=== PATIENT | female | born 1985 | race Caucasian/White ===

== ENCOUNTER → 2018-12-08 | Outpatient (REF) | payer OTHER ==
[2018-12-08 11:38] LABS: URINE PREG TEST NEGATIVE (NEGATIVE)
[2018-12-08 11:45] LABS: APPEARANCE, URINE CLOUDY (CLEAR); BACTERIA, URINE AUTO 1+ (NEGATIVE); BILIRUBIN, URINE AUTO NEGATIVE (NEGATIVE); BLOOD, URINE BLOOD 3+ (NEGATIVE); COLOR, URINE AMBER (YELLOW); GLUCOSE, URINE (UA) AUTO NEGATIVE (NEGATIVE); KETONE, URINE AUTO NEGATIVE (NEGATIVE); LEUKOCYTE ESTERASE, URINE AUTO 3+ (NEGATIVE); MUCUS, URINE SMALL (NEGATIVE); NITRITE, URINE AUTO NEGATIVE (NEGATIVE); PROTEIN, URINE AUTO 1+ mg/dL (NEGATIVE); RBC, URINE AUTO 13 /HPF (0-3); SPECIFIC GRAVITY URINE AUTO 1.024 (1.002-1.035); SQUAMOUS EPITHELIAL CELL UR AU 18 /HPF (0-6); UROBILINOGEN, URINE AUTO 0.2 mg/dL (0.0-2.0); WBC, URINE AUTO 77 /HPF (0-3)
== END ==
LOC: M LAB REF 11:04
PROVIDERS: ATTEND Physician Assistant
DX: N39.0 Urinary tract infection, site not specified (principal)

== ENCOUNTER 2019-12-23 14:18 | Emergency (ER) | payer OTHER ==
[~2019-12-23] VITALS: Ht 167.6 cm; Wt 103.5 kg
--- NOTE | 2019-12-23 14:52 | REP ---
Portable chest, 02:37 p.m., single AP view with the patient sitting: There are no comparisons. The lung brooks are clear. The cardiac size is normal. The dustin, mediastinum, and skeletal structures are unremarkable. Impression: Negative portable chest. Electronically Signed by Raza Jain MD 12/23/2019 02:44 P
[2019-12-23 15:12] LABS: BASO % 0.5 % (0.0-1.0); EOS % 0.5 % (0.0-3.0); HEMATOCRIT 43.1 % (36.0-47.0); HEMOGLOBIN 14.1 g/dl (12.0-15.5); LYMPH # 1.2 10^3/uL (1.5-5.0); LYMPH % 19.9 % (24.0-44.0); MEAN CORPUSCULAR HEMOGLOBIN 28.9 pg (27.0-33.0); MEAN CORPUSCULAR HGB CONC 32.7 g/dl (32.0-36.5); MEAN CORPUSCULAR VOLUME 88.3 fl (80.0-96.0); MONO # 0.7 10^3/uL (0.0-0.8); NEUTROPHILS % 67.9 % (36.0-66.0); PLATELET COUNT, AUTOMATED 275 10^3/uL (150-450); RED BLOOD COUNT 4.88 10^6/uL (4.00-5.40); WHITE BLOOD COUNT 5.9 10^3/uL (4.0-10.0)
[2019-12-23 15:24] LABS: INR 1.08; PROTHROMBIN TIME 13.8 SECONDS (11.8-14.0)
[2019-12-23 15:50] LABS: ALBUMIN 4.1 GM/DL (3.2-5.2); ALT/SGPT 19 U/L (12-78); BILIRUBIN,DIRECT 0.1 MG/DL (0.0-0.2); BILIRUBIN,TOTAL 0.3 MG/DL (0.2-1.0); BLOOD UREA NITROGEN 8 MG/DL (7-18); CALCIUM LEVEL 8.9 MG/DL (8.5-10.1); CARBON DIOXIDE LEVEL 25 MEQ/L (21-32); CHLORIDE LEVEL 108 MEQ/L (98-107); CK-MB VALUE MASS 1.6 NG/ML (<3.6); CPK CREATINE PHOSPHOKINASE 184 U/L (26-192); CREATININE FOR GFR 0.83 MG/DL (0.55-1.30); GLOMERULAR FILTRATION RATE > 60.0 (>60); GLUCOSE, FASTING 98 MG/DL (70-100); LIPASE 113 U/L (73-393); MB/CK RELATIVE INDEX 0.87 (< OR =4); NT-PRO BNP 40 PG/ML (<125); POTASSIUM SERUM 4.2 MEQ/L (3.5-5.1); SODIUM LEVEL 139 MEQ/L (136-145); TOTAL PROTEIN 7.7 GM/DL (6.4-8.2); TROPONIN I < 0.02 NG/ML (< 0.10)
[2019-12-23 16:00] VITALS: BP 140/94
[2019-12-23] MEDS ORDERED: ISOVUE-370 76% 100ML VIAL (Q9967) As Ordered ONE (16:08)
--- NOTE | 2019-12-23 16:38 | REP ---
CT of the chest with IV contrast, CT pulmonary angiography: There are no comparison studies. There are no emboli in the pulmonary trunk or central pulmonary arteries. There are no emboli in the pulmonary lobe or segment branches. There are no infiltrates or pleural effusions. There are no masses or nodules. There is no mediastinal, hilar or axillary adenopathy. The thoracic aorta is unremarkable. Cardiac size is normal. There is no pericardial effusion. The visualized upper abdominal contents are unremarkable. Impression: There are no pulmonary emboli. Otherwise, negative CT study of the chest. Electronically Signed by Raza Jain MD 12/23/2019 04:30 P
--- NOTE | 2019-12-23 20:34 | ECGEPIP ---
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
== END 2019-12-23 16:47 | disposition left against medical advice (07) ==
LOC: M ED 14:18
DX: R07.9 Chest pain, unspecified (principal); R42 Dizziness and giddiness; Z53.20 Procedure and treatment not carried out because of patient's decision for unspecified reasons
CPT/HCPCS: 36415; 71045; 71275; 80048; 80076; 82550; 82553; 83690; 83880; 84443; 84484; 85025; 85610; 93005; 93041; 94760; 99284; Q9967

== ENCOUNTER → 2020-12-12 | Outpatient (REF) | payer OTHER ==
[2020-12-12 16:06] LABS: HEMATOCRIT 40.5 % (36.0-47.0); HEMOGLOBIN 13.3 g/dl (12.0-15.5); MEAN CORPUSCULAR HEMOGLOBIN 29.6 pg (27.0-33.0); MEAN CORPUSCULAR HGB CONC 32.8 g/dl (32.0-36.5); MEAN CORPUSCULAR VOLUME 90.2 fl (80.0-96.0); PLATELET COUNT, AUTOMATED 248 10^3/uL (150-450); RED BLOOD COUNT 4.49 10^6/uL (4.00-5.40); WHITE BLOOD COUNT 5.7 10^3/uL (4.0-10.0)
[2020-12-12 16:26] LABS: ALT/SGPT 21 U/L (12-78); BILIRUBIN,TOTAL 0.2 MG/DL (0.2-1.0); CREATININE FOR GFR 0.71 MG/DL (0.55-1.30); GLOMERULAR FILTRATION RATE > 60.0 (>60); GLUCOSE CHALLENGE TEST 1 HOUR 195 MG/DL (LESS THAN 140); LDH LACTATE DEHYDROGENASE 125 U/L (84-246); URIC ACID 3.7 MG/DL (2.6-6.0)
[2020-12-12 16:38] LABS: CREATININE,RANDOM URINE 95.3 MG/DL; TOTAL PROTEIN,RANDOM URINE 9.3 MG/DL (0.0-12.0)
[2020-12-12 17:16] LABS: HEPATITIS C VIRUS ABY INDEX < 0.0 INDEX (<0.8)
[2020-12-12 17:17] LABS: HIV 1&2 SCREEN CENTAUR NEGATIVE (NEGATIVE)
[2020-12-12 17:34] LABS: HEMOGLOBIN A1c 5.4 %
[2020-12-13 13:33] LABS: CHLAMYDIA DNA AMPLIFICATION NEGATIVE (NEGATIVE); GC DNA AMPLIFICATION NEGATIVE (NEGATIVE)
== END ==
LOC: M PLALAB 13:45
PROVIDERS: ATTEND Advanced Practice Midwife
DX: Z3A.10 10 weeks gestation of pregnancy (principal); O99.211 Obesity complicating pregnancy, first trimester; Z86.32 Personal history of gestational diabetes

== ENCOUNTER → 2021-02-12 | Outpatient (CLI) | payer OTHER ==
--- NOTE | 2021-02-12 16:23 | REP ---
INDICATION: ANATOMY COMPARISON: None. TECHNIQUE: Transabdominal obstetrical ultrasound with color Doppler evaluation. FINDINGS: Examination demonstrates a single live intrauterine in breech presentation. motion is identified by technologist. Placenta is noted posterior and grade 1 measuring approximately 2.8 cm from the closed internal os. Amniotic fluid volume is normal. Cervix measures 3.8 cm in length and appears closed.. Gestational age by LMP 19 weeks 1 day with MARIA M 07/08/2021. Gestational age by current measurements 18 weeks 5 days with MARIA M 07/11/2021. FHR equals 152 beats per minute. BPD: 4.1 cm at 18 weeks 4 days HC: 15.7 cm at 18 weeks 4 days AC: 12.9 cm at 18 weeks 3 days FL: 3.0 cm at 19 weeks 2 days HL: 2.7 cm at 18 weeks 6 days HC/AC: 1.22 Estimated weight 259 grams (28thpercentile). Anatomical assessment demonstrates normal structures including cranium, choroid plexus, cavum, cerebellum/posterior fossa, facial profile, lungs, diaphragm, stomach, cord insertion/three-vessel cord, kidneys/bladder, spine, and extremities. Limited evaluation of the nose/lips and heart/ventricular outflow tract. IMPRESSION: 1. Single live intrauterine in breech presentation demonstrating appropriate estimated weight. 2. Posterior placenta roughly 2.7 cm from the closed internal os. 3. Anatomical limitations as noted above may warrant re-evaluation and follow-up. <Electronically signed by Ken Koch > 02/12/21 [id number]
== END ==
LOC: M WHC 12:16
PROVIDERS: ATTEND Advanced Practice Midwife
DX: Z36.89 Encounter for other specified antenatal screening (principal); O24.319 Unspecified pre-existing diabetes mellitus in pregnancy, unspecified trimester; Z3A.18 18 weeks gestation of pregnancy

== ENCOUNTER 2021-02-26 12:25 | Outpatient (CLI) | payer OTHER ==
[~2021-02-26] VITALS: Ht 167.6 cm; Wt 97.2 kg
[2021-02-26] MEDS ORDERED: METF-839 PO (12:44)
[2021-02-26] MEDS ORDERED: PREN1TAB18 PO (12:44)
[2021-02-26] MEDS ORDERED: ASPI81CH2 PO (12:46)
[2021-02-26] MEDS ORDERED: OMEP40CA97 PO (12:46)
[2021-02-26 12:49] VITALS: BP 122/64
--- NOTE | 2021-02-26 13:23 | IPNPDOC ---
Obstetrical Progress Note Date of Service Feb 26, 2021 Subjective 35 yo female at 21 1/7 weeks with no movement today. No pain. Objective Vital Signs Date Time Temp Pulse Resp B/P (MAP) Pulse Ox O2 Delivery O2 Flow Rate FiO2 02/26/21 12:49 98.9 83 20 122/64 (83) Assessment Heart Rate (FHR): 130 Tocometer Contractions: No Assessment and Plan Status: Reassuring Additional Comments bedside ultrasound: numerous movements observed. normal GARRISON. posterior placenta. A/P 35 yo at 21 weeks, reassuring testing Ulrtrasound performed to document movements,as noted above Pt reassured fu office as scheduled ALLEN SR MD Feb 26, 2021 13:23
== END 2021-02-26 13:21 | disposition home or self-care (01) ==
LOC: M LDO 12:25
PROVIDERS: ATTEND Specialist
DX: O36.8120 Decreased fetal movements, second trimester, not applicable or unspecified (principal); Z3A.21 21 weeks gestation of pregnancy
CPT/HCPCS: 59025; 76815; G0378; G0463

== ENCOUNTER → 2021-03-29 | Outpatient (CLI) | payer OTHER ==
[~2021-03-29] MED LIST: ASPI81CH2 PO; METF-839 PO; OMEP40CA97 PO; PREN1TAB18 PO
--- NOTE | 2021-03-29 14:18 | REP ---
INDICATION: F/U ANATOMY. MARIA M 08 July 2021. COMPARISON: Comparison obstetric sonography 12 February 2021.. TECHNIQUE: Transabdominal obstetric sonography. FINDINGS: Scanning through the gravid uterus demonstrates a viable single intrauterine gestation in breech lie. motion is observed and heart rate is recorded at 156 beats per minute. A next posterior placenta is seen, grade 1, without evidence of placenta previa. Closed cervical length is measured at 4.3 cm transabdominally. No extrauterine abnormality is observed. Amniotic fluid is subjectively normal. Four-chamber heart and left and right ventricular outflow tract views remain less than optimally achieved due to position. spine is less than optimally achieved today but was seen previously. nose and lips face and profile are seen today and are felt to be unremarkable.. Biometry chart: BPD 5.9 cm, 24 weeks 2 days Head circumference 23.5 cm, 25 weeks 4 days Abdominal circumference 20.0 cm, for 24 weeks 4 days Femur length 4.6 cm, 25 weeks 0 days Humeral length 4.1 cm, 24 weeks 6 days HC AC ratio normal 1.18 Cephalic index normal 0.68 Estimated weight 741 g, 1 lb 10 oz, 15th percentile for 25 weeks 4 days IMPRESSION: Viable single intrauterine gestation at 24 weeks 6 days by today's composite sonographic criteria. MARIA M by today's sonography 13 July 2021.. No complication identified. Expected gestational age estimate based on prior sonography is 25 weeks 4 days. MARIA M by prior sonography 08 July 2021. Four-chamber heart and outflow tract views dull less than optimally achieved due to position <Electronically signed by Wellington Werner > 03/29/21 0161
== END ==
LOC: M WHC 12:25
PROVIDERS: ATTEND Advanced Practice Midwife
DX: O24.319 Unspecified pre-existing diabetes mellitus in pregnancy, unspecified trimester (principal); Z3A.24 24 weeks gestation of pregnancy

== ENCOUNTER → 2021-04-10 | Outpatient (REF) | payer OTHER ==
[2021-04-10 13:40] LABS: HEMATOCRIT 37.5 % (36.0-47.0); HEMOGLOBIN 12.5 g/dl (12.0-15.5); MEAN CORPUSCULAR HEMOGLOBIN 30.6 pg (27.0-33.0); MEAN CORPUSCULAR HGB CONC 33.3 g/dl (32.0-36.5); MEAN CORPUSCULAR VOLUME 91.9 fl (80.0-96.0); PLATELET COUNT, AUTOMATED 220 10^3/uL (150-450); RED BLOOD COUNT 4.08 10^6/uL (4.00-5.40); WHITE BLOOD COUNT 4.6 10^3/uL (4.0-10.0)
== END ==
LOC: M PLALAB 09:56
PROVIDERS: ATTEND Advanced Practice Midwife
DX: O24.319 Unspecified pre-existing diabetes mellitus in pregnancy, unspecified trimester (principal); Z3A.00 Weeks of gestation of pregnancy not specified
CPT/HCPCS: 36415; 85027; 86850; 86900; 86901; G0463

== ENCOUNTER → 2021-04-16 | Outpatient (CLI) | payer OTHER ==
--- NOTE | 2021-04-16 10:31 | REP ---
INDICATION: F/U HEART VOTS EDD07/08/21 COMPARISON: 03/29/2021 TECHNIQUE: Transabdominal obstetrical ultrasound with color Doppler evaluation. FINDINGS: Examination demonstrates a single live intrauterine in transverse presentation. motion is identified by technologist. Placenta is noted posterior and grade 1 without evidence for placenta previa or abruption. Amniotic fluid volume is normal. Cervix measures 3.3 cm in length and appears closed.. Gestational age by LMP 28 weeks 1 day with MARIA M 07/08/2021. Gestational age by current measurements 27 weeks 5 days with MARIA M 07/11/2021. FHR equals 140 beats per minute. Estimated weight 1173 grams (35thpercentile). Anatomical assessment demonstrates normal structures including four-chamber heart/ventricular outflow tracts. IMPRESSION: Single live intrauterine in transverse lie demonstrating appropriate interval growth. In conjunction with prior examination anatomical assessment is complete and normal. <Electronically signed by Ken Koch > 04/16/21 [id number]
== END ==
LOC: M WHC 09:19
PROVIDERS: ATTEND Advanced Practice Midwife
DX: Z34.82 Encounter for supervision of other normal pregnancy, second trimester (principal)

== ENCOUNTER → 2021-05-14 | Outpatient (CLI) | payer OTHER ==
--- NOTE | 2021-05-15 03:47 | REP ---
INDICATION: GROWTH/PREGESTATIONAL DIABETES COMPARISON: 04/16/2021 TECHNIQUE: Transabdominal obstetrical ultrasound with color Doppler evaluation. FINDINGS: Examination demonstrates a single live intrauterine in transverse (head to maternal right) presentation. motion is identified by technologist. Placenta is noted posterior and grade 1 without evidence for placenta previa or abruption. Amniotic fluid volume is normal. Cervix measures 3.7 cm in length and appears closed.. Selected gestational age: 32 weeks 1 day with MARIA M 07/08/2021. Gestational age by current measurements 31 weeks 2 days with MARIA M is 07/14/2021. FHR equals 133 beats per minute. BPD: 7.6 cm at 30 weeks 2 days HC: 29.2 cm at 32 weeks 2 days AC: 26.7 cm at 30 weeks 6 days FL: 6.1 cm at 31 weeks 4 days HL: 5.4 cm at 31 weeks 2 days HC/AC: 1.09 Estimated weight 1714 grams (15thpercentile). GARRISON: 13.7 cm Umbilical artery SD ratio: 2.34, 2.39 (1.83-3.86) IMPRESSION: Single live intrauterine in transverse lie demonstrating appropriate estimated weight. Amniotic fluid volume is normal. No gross abnormalities are identified. <Electronically signed by Ken Koch > 05/15/21 [id number]
== END ==
LOC: M WHC 11:14
PROVIDERS: ATTEND Advanced Practice Midwife
DX: O24.313 Unspecified pre-existing diabetes mellitus in pregnancy, third trimester (principal); Z3A.32 32 weeks gestation of pregnancy

== ENCOUNTER → 2021-06-05 | Outpatient (REF) | payer OTHER ==
[~2021-06-05] MED LIST changes: +OMEP40CA4 PO; -OMEP40CA97 PO
== END ==
LOC: M SFHCWAGY 16:46
PROVIDERS: ATTEND Advanced Practice Midwife
DX: O09.523 Supervision of elderly multigravida, third trimester (principal)

== ENCOUNTER → 2021-06-11 | Outpatient (CLI) | payer OTHER ==
--- NOTE | 2021-06-11 23:05 | REP ---
INDICATION: GROWTH/DIABETES COMPARISON: 05/14/2021 TECHNIQUE: Transabdominal obstetrical ultrasound with color Doppler evaluation. FINDINGS: Examination demonstrates a single live intrauterine in cephalic presentation. motion is identified by technologist. Placenta is noted posterior and grade 0 without evidence for placenta previa or abruption. Amniotic fluid volume is normal. Cervix measures 3.9 cm in length and appears closed.. Selected gestational age: Thirty-six weeks 1 day with MARIA M 07/08/2021. Gestational age by current measurements 35 weeks 1 day with MARIA M 07/15/2021. FHR equals 132 beats per minute. BPD: 8.6 cm at 34 weeks 4 days HC: 31.6 cm at 35 weeks 3 days AC: 30.5 cm at 34 weeks 3 days FL: 7.0 cm at 36 weeks 0 days HL: 6.0 cm at 34 weeks 6 days HC/AC: 1.04 Estimated weight 2573 grams (23rdpercentile). GARRISON: 9.3 cm (7.7-24.8) Umbilical artery SD ratio: 2.46, 2.33 (1.63-3.50) IMPRESSION: Single live intrauterine in cephalic presentation demonstrating appropriate estimated weight. Amniotic fluid volume normal. <Electronically signed by Ken Koch > 06/11/21 [id number]
== END ==
LOC: M WHC 11:22
PROVIDERS: ATTEND Advanced Practice Midwife
DX: O24.313 Unspecified pre-existing diabetes mellitus in pregnancy, third trimester (principal); Z3A.35 35 weeks gestation of pregnancy

== ENCOUNTER 2021-06-19 13:09 | Inpatient (IN) | payer OTHER ==
[~2021-06-19] VITALS: Ht 167.6 cm; Wt 91.4 kg
[2021-06-19] VITALS (9 sets, daily range): BP systolic 107–129; BP diastolic 53–79
[2021-06-19] MEDS ORDERED: METHYLERGONOVINE MALEATE 0.2 MG/ML VIAL (J2210) IM PRN (14:00)
[2021-06-19] MEDS ORDERED: miSOPROStol 50MCG 1/2 TABLET PO ONE ×2 (14:00→19:45)
[2021-06-19] MEDS ORDERED: LIDOCAINE 1% MDV 20ML VIAL INFIL PRN (14:00)
[2021-06-19] MEDS ORDERED: OXYTOCIN DRIP 30 UNITS in IV 1 EA IV PRN (14:00)
[2021-06-19] MEDS ORDERED: OXYTOCIN INJ 10 UNITS/ML VIAL (J2590) IM PRN (14:00)
[2021-06-19 15:04] LABS: HEMATOCRIT 34.3 % (36.0-47.0); HEMOGLOBIN 11.6 g/dl (12.0-15.5); MEAN CORPUSCULAR HEMOGLOBIN 30.5 pg (27.0-33.0); MEAN CORPUSCULAR HGB CONC 33.8 g/dl (32.0-36.5); MEAN CORPUSCULAR VOLUME 90.3 fl (80.0-96.0); PLATELET COUNT, AUTOMATED 205 10^3/uL (150-450); WHITE BLOOD COUNT 5.2 10^3/uL (4.0-10.0)
[2021-06-19] MEDS: LR 1,000 ML IV SCH ×2 (16:25→22:11)
--- NOTE | 2021-06-19 18:28 | HPE ---
HISTORY AND PHYSICAL DATE OF ADMISSION: 06/19/2021 ADMITTING DIAGNOSIS: Viky is a 36-year-old 2, para 1-0-0-1 at 37-2/7 weeks gestation based on last menstrual period and from first trimester ultrasound. She presents to labor and delivery today for induction of labor due to current diagnosis of oligohydramnios that was made in the office today. HISTORY OF PRESENT ILLNESS: She does deny vaginal bleeding, leakage of fluid, and painful contractions. The fetus has been active. Her care was initiated in the first trimester at [facility]. course has been complicated by advanced maternal age, white coat hypertension, GERD, gestational diabetes which has been somewhat moderately managed on Metformin 1000 mg at bedtime and today's diagnosis of oligohydramnios. OBSTETRIC HISTORY: July 01, 2016, vaginal delivery, 8 pound, 13 ounce male, 41 weeks and 1 day. OBSTETRIC LABS: O positive, antibody screen negative, syphilis negative, gonorrhea and chlamydia negative. Hepatitis B negative. Hepatitis C negative. HIV negative. Rubella immune. Early glucose tolerance test was 195. The patient did refuse her three hour glucose tolerance test and preferred to be treated as a pre-gestational diabetic. Her hemoglobin A1c on December 20, 2020 was 5.4. Urine culture negative. GBS is negative. MEDICAL HISTORY: 1. Gestational diabetes in her prior . 2. Reflux. SURGERIES: Denies any surgeries. FAMILY HISTORY: Hypercholesterolemia, anemia, rheumatoid arthritis, hypertension. SOCIAL HISTORY: The patient is . She is a [id number] mother. She is a nonsmoker. Denies alcohol and drug use. No history of sexually transmitted infections. She denies history of abuse, physical, sexual and emotional. ALLERGIES: No known drug allergies. CURRENT MEDICATIONS: 1. Metformin 1000 mg by mouth at hour of sleep. 2. vitamin. PHYSICAL EXAMINATION: Vital signs: Temperature 98.8, pulse 81, respirations 18, blood pressure 129/73. General: Alert and oriented times three. heart rate upon arrival 155 with moderate variability, positive accelerations, negative decelerations. There is no pattern of regular contractions. Her abdomen is gravid. Cephalic presentation. Estimated weight 2700 gm. Sterile Vaginal Exam: 1 cm dilated, 50% effaced, ballottable station. ASSESSMENT: Intrauterine at 37-2/7 weeks. heart rate category 1. Oligohydramnios. PLAN: Per consult with Dr. Eneida Small, admit the patient to labor and delivery for induction. Routine laboratories. Out of bed ad lying in bed. Saline locked for IV access. Plan to start misoprostol 50 mcg by mouth every 4 hours for cervical ripening. Likely will start IV Pitocin. May consider assisted rupture of membranes to augment her labor. The patient is requesting an epidural when she is uncomfortable in her labor. Risks, benefits, and alternatives have been reviewed with the patient. She and her 's questions have been answered. She has been verbally consented for emergency surgery and blood products if necessary. I do anticipate cervical ripening, labor and vaginal delivery.
[2021-06-19] MEDS ORDERED: metFORMIN (GLUCOPHAGE) 1000 MG TABLET PO SCH (21:00)
[2021-06-19] MEDS ORDERED: OXYTOCIN DRIP 30 UNITS in IV 1 EA IV SCH (23:35)
[2021-06-19] MEDS ORDERED: OXYTOCIN 30 UNITS IN 0.9% NaCl 500ML IV BAG (J2590) As Ordered ONE (23:37)
[2021-06-20] VITALS (43 sets, daily range): BP systolic 96–144; BP diastolic 51–74
[2021-06-20] MEDS ORDERED: FENTANYL 2MCG/ML ROPIVACAINE 0.2% IN 0.9% NACL 100ML IVBAG As Ordered ONE (00:40)
[2021-06-20] MEDS ORDERED: ONDANSETRON 4MG/2ML VIAL IV PRN (01:10)
[2021-06-20] MEDS ORDERED: LACTATED RINGER'S 1000 ML IV PRN (01:10)
[2021-06-20] MEDS ORDERED: NALOXONE INJ 0.4MG/1ML VIAL (J2310 PER 1MG) IV PRN (01:10)
[2021-06-20] MEDS ORDERED: EPIDURAL/PCA KEYS XX PRN (01:10)
[2021-06-20] MEDS ORDERED: ePHEDrine SULFATE 25 MG/5 ML(5MG/ML) SYRINGE IV PRN (01:10)
[2021-06-20] MEDS ORDERED: FENTANYL/ROPIVACAINE/NACL BAG 100 ML EPIDURAL SCH (01:10)
[2021-06-20] MEDS ORDERED: diphenhydrAMINE 50MG/ML VIAL (J1200) IV PRN (01:10)
[2021-06-20] MEDS ORDERED: EPIDURAL COMMENT XX SCH (01:10)
[2021-06-20] MEDS ORDERED: REFRIGERATOR IV KEYS XX PRN (01:10)
[2021-06-20] MEDS: LR 1,000 ML IV SCH (06:09)
[2021-06-20] MEDS ORDERED: METHYLERGONOVINE MALEATE 0.2 MG TAB PO PRN (06:15)
[2021-06-20] MEDS ORDERED: ACETAMINOPHEN TAB 650MG DOSE (2X325MG) PO PRN (06:15)
[2021-06-20] MEDS ORDERED: OXYTOCIN DRIP 30 UNITS in IV 1 EA IV SCH (06:15)
[2021-06-20] MEDS ORDERED: MEASLES,MUMPS,RUBELLA VACCINE INJ (MMR-II) (90707) SC SCH (06:15)
[2021-06-20] MEDS ORDERED: DIBUCAINE 1% OINTMENT 30GM TOP PRN (06:15)
[2021-06-20] MEDS ORDERED: RHOGAM 300 MCG (1500 IU) INJ (J2790) IM SCH (06:15)
[2021-06-20] MEDS ORDERED: DOCUSATE SODIUM 100MG CAPSULE PO PRN (06:15)
[2021-06-20] MEDS ORDERED: IBUPROFEN 600MG TAB PO PRN (06:15)
[2021-06-20] MEDS ORDERED: IBUPROFEN 800 MG TAB PO PRN (06:15)
--- NOTE | 2021-06-20 07:02 | DN ---
DELIVERY NOTE DATE OF DELIVERY: 06/19/2021 TIME OF : GENDER: APGARS: LACERATIONS: ANESTHESIA: ESTIMATED BLOOD LOSS: COUNTS: DESCRIPTION OF DELIVERY: Viky is a 36-year-old 2 para 2-0-0-2 now who is admitted to labor and delivery for induction of labor due to oligohydramnios. Misoprostol and IV Pitocin were used and labor did ensue. She did experience some vaginal bleeding that was more than typical for cervical change. heart rate remained category 1 throughout so the decision to proceed with the induction was made. She had spontaneous rupture of membranes of clear bloody fluid at 0516. She reached completion dilation at 0538. She pushed to a normal spontaneous vaginal delivery of a live female infant in OA position with restitution to ROT position at 0546. There was no nuchal cord. The shoulders delivered spontaneously and the corpus immediately followed. Of note, the amniotic fluid was very bloody and clinical diagnosis of placenta abruption was made at the time of delivery. The cord was clamped time two once pulsations ceased and cut by the father of the baby under my direction. Spontaneous expulsion of an intact placenta with 3-vessel cord by Arriaga mechanism at 0551. Uterine hemostasis achieved with IV Pitocin rapid infusion and uterine fundal massage. Estimated blood loss: 400 mL. 0.2 mg of IM Methergine was also given due to continued bleeding. Perineum and vagina inspected and noted to have a first-degree laceration. The laceration was repaired with 3-0 Vicryl Rapide in the usual fashion. The female weighed 6 pounds 5 ounces, 2870 grams; Apgars 7 and 8. Mom is going to breast feed her daughter, and the family have named her Louie Collins. At the close of delivery, lap counts, needle counts and instrument counts were correct and verified. At this time, Mom and baby are stable.
[2021-06-20] MEDS ORDERED: SLF 3 ML SYR IV PRN (08:30)
[2021-06-20] MEDS: PRENATAL VITAMINS CHEWABLE TABLET PO SCH (09:55)
[2021-06-20] MEDS: ACETAMINOPHEN 500 MG TAB PO PRN ×2 (11:43→21:03)
[2021-06-20] MEDS: SLF 3 ML SYR IV SCH ×2 (17:20→21:02)
[2021-06-21] MEDS: SLF 3 ML SYR IV SCH (05:48)
[2021-06-21 05:57] VITALS: BP 101/57
--- NOTE | 2021-06-21 08:33 | IPNPDOC ---
Progress Note Date of Service: Jun 21, 2021 Day#: 1 Progress Note SUBJECT: Status post . She has been ambulating, voiding spontaneously with out issue and tolerating regular diet. Lochia decreasing/minimal. Pain is well- controlled. Denies headache, visual changes, right upper quadrant pain, shortness breath or chest pain. OBJECTIVE: VITAL SIGNS: Within normal limits, afebrile. Alert and oriented times three. Abdomen: Fundus firm at U-2. Soft, NTTP. ASSESSMENT: Status post uncomplicated spontaneous vaginal delivery. Vitals within normal limits, afebrile, hemodynamically stable with no evidence of infection. PLAN: Discharge to home today. Tylenol and Motrin for pain. Routine instructions/precautions reviewed. Routine PP visit in 6 weeks in clinic. VS, I&O, 24H, Fishbone Vital Signs/I&O Vital Signs Date Time Temp Pulse Resp B/P (MAP) Pulse Ox O2 Delivery O2 Flow Rate FiO2 06/21/21 05:57 97.6 56 16 101/57 (72) 98 Room Air I&O- Last 24 Hours up to 6 AM 06/21/21 05:59 Intake Total 2173.8 ml Output Total 750 ml Balance 1423.8 ml Laboratory Data 24H LABS Laboratory Tests 2 06/20/21 21:13: Bedside Glucose (Misc Panel) 121H BREANNA CURIEL DO Jun 21, 2021 08:33
[2021-06-21] MEDS ORDERED: IBUP80TA PO (08:35)
[2021-06-21] MEDS ORDERED: DOK1CAP7 PO (08:35)
[2021-06-21] MEDS ORDERED: ACET-683 PO (08:35)
[2021-06-21] MEDS: PRENATAL VITAMINS CHEWABLE TABLET PO SCH (09:00)
== END 2021-06-21 11:45 | disposition home or self-care (01) | DRG 807 ==
LOC: M LDI 13:09 → M OBS 06-20 15:37
PROVIDERS: ADMIT Advanced Practice Midwife; ATTEND Advanced Practice Midwife
PROC: 10E0XZZ Delivery of Products of Conception, External Approach (ICD-10-PCS; principal; 2021-06-19)
PROC: 0HQ9XZZ Repair Perineum Skin, External Approach (ICD-10-PCS; 2021-06-19)
PROC: 3E0P7GC Introduction of Other Therapeutic Substance into Female Reproductive, Via Natural or Artificial Opening (ICD-10-PCS; 2021-06-19)
DX: O41.03X0 Oligohydramnios, third trimester, not applicable or unspecified (principal); Z37.0 Single live birth; O24.425 Gestational diabetes mellitus in childbirth, controlled by oral hypoglycemic drugs; Z3A.37 37 weeks gestation of pregnancy; O99.62 Diseases of the digestive system complicating childbirth; K21.9 Gastro-esophageal reflux disease without esophagitis; O70.0 First degree perineal laceration during delivery; Z79.84 Long term (current) use of oral hypoglycemic drugs

== ENCOUNTER → 2023-01-11 | Outpatient (REF) | payer OTHER ==
[~2023-01-11] MED LIST changes: +ACET-683 PO; +DOK1CAP4 PO; +IBUP80TA PO
== END ==
LOC: M LAB REF 19:04
PROVIDERS: ATTEND Physician Assistant
DX: J02.9 Acute pharyngitis, unspecified (principal)

== ENCOUNTER → 2024-10-13 | Outpatient (CLI) | payer OTHER | LOC: M RAD 11:49 | PROVIDERS: ATTEND Physician Assistant Medical | DX: M79.671 Pain in right foot (principal); Z91.81 History of falling ==